=== PATIENT | male | born 1945 | race Caucasian/White ===

== ENCOUNTER 2021-10-22 02:00 | Emergency (ER) | payer MEDICARE, OTHER ==
--- NOTE | 2021-10-22 02:37 | EDM.PDOC ---
ED HPI GENERAL MEDICAL PROBLEM - General Chief Complaint: Abdominal Pain Stated Complaint: LOWER ABD PAIN Time Seen by Provider: 10/22/21 02:35 Source of Information: Reports: Patient History Limitations: Reports: No Limitations - History of Present Illness INITIAL COMMENTS - FREE TEXT/NARRATIVE: Patient is a 76-year-old male presenting to the emergency room with a complaint of lower abdominal pain. Patient reports 2 days of a bilateral lower abdominal ache which is fairly constant. Nothing seems to make symptoms better or worse. He has noticed associated symptoms that include decreased appetite and no bowel movement. Patient states he still passing flatus. Does not have a recent history of constipation. He otherwise denies fevers, chills, vomiting, dysuria, hematuria, difficulty voiding. Bilateral Lower Abdominal Pain Score (Numeric/FACES): 7 - Related Data Allergies Allergy/AdvReac Type Severity Reaction Status Date / Time No Known Allergies Allergy Verified 10/22/21 02:27 Home Meds: Home Meds Ascorbic Acid [Vitamin C] 500 mg PO DAILY 10/22/21 [History] Glimepiride 1 mg PO TID 10/22/21 [History] Multivitamin 1 tab PO DAILY 10/22/21 [History] amLODIPine Besylate [Norvasc] 2.5 mg PO DAILY 10/22/21 [History] lisinopriL [Lisinopril] 40 mg PO DAILY 10/22/21 [History] metFORMIN [Glucophage] 500 mg PO TID 10/22/21 [History] ED ROS GENERAL - Review of Systems Review Of Systems: See Below Free Text/Narrative/Comment: In addition to that documented in the HPI above, the additional ROS was obtained: Constitutional: Denies fevers or chills Eyes: Denies vision changes ENMT: Denies sore throat CV: Denies chest pain Resp: Denies SOB GI: Denies vomiting or diarrhea : Denies painful urination MSK: Denies recent trauma Skin: Denies new rashes Neuro: Denies new numbness or tingling or weakness Endocrine: Denies unexpected weight loss Heme: Denies bleeding disorders ED EXAM, GI/ABD - Physical Exam Exam: See Below Text/Narrative:: I have reviewed the triage vital signs Const: Well nourished, well developed, appears stated age Eyes: Pupils Equal and reactive to light bilaterally, no conjunctival injection HENT: No signs of trauma or swelling, Neck supple without meningismus CV: Regular Rate Rhythm, Warm, well-perfused extremities RESP: Unlabored respiratory effort GI: soft, non-tender, non-distended, no masses MSK: No gross deformities appreciated Skin: Warm, dry. No rashes Neuro: Alert, rug clipper II-XII grossly intact. Sensation and motor function of extr emities grossly intact. Psych: Appropriate mood and affect. Course - Vital Signs Last Recorded V/S: Last Vital Signs Temp 36.8 C 10/22/21 02:21 Pulse 60 10/22/21 02:21 Resp 18 10/22/21 02:21 BP 201/78 H 10/22/21 02:21 Pulse Ox 99 10/22/21 02:21 - Orders/Labs/Meds Labs: Laboratory Tests 10/22/21 10/22/21 10/22/21 Range/Units 02:45 02:45 02:45 WBC 14.82 H (4.23-9.07) K/mm3 RBC 4.35 L (4.63-6.08) M/mm3 Hgb 13.0 L (13.7-17.5) gm/dl Hct 38.7 L (40.1-51.0) % MCV 89.0 (79.0-92.2) fl MCH 29.9 (25.7-32.2) pg MCHC 33.6 (32.2-35.5) g/dl RDW Std Deviation 43.9 (35.1-43.9) fL Plt Count 269 (163-337) K/mm3 MPV 9.0 L (9.4-12.3) fl Neut % (Auto) 78.0 H (34.0-67.9) % Lymph % (Auto) 12.3 L (21.8-53.1) % [place] % (Auto) 8.2 (5.3-12.2) % Eos % (Auto) 0.9 (0.8-7.0) Baso % (Auto) 0.3 (0.1-1.2) % Neut # (Auto) 11.56 H (1.78-5.38) K/mm3 Lymph # (Auto) 1.83 (1.32-3.57) K/mm3 [place] # (Auto) 1.22 H (0.30-0.82) K/mm3 Eos # (Auto) 0.13 (0.04-0.54) K/mm3 Baso # (Auto) 0.04 (0.01-0.08) K/mm3 Sodium 140 (136-145) mEq/L Potassium 4.6 (3.5-5.1) mEq/L Chloride 106 (98-107) mEq/L Carbon Dioxide 25 (21-32) mEq/L Anion Gap 13.6 (5-15) BUN 31 H (7-18) mg/dL Creatinine 2.6 H (0.7-1.3) mg/dL Est Cr Clr Drug Dosing 22.60 mL/min Estimated GFR (MDRD) 24 (>60) mL/min BUN/Creatinine Ratio 11.9 L (14-18) Glucose 188 H (70-99) mg/dL Lactic Acid 0.9 (0.4-2.0) mmol/L Calcium 8.8 (8.5-10.1) mg/dL Total Bilirubin 0.9 (0.2-1.0) mg/dL AST 15 (15-37) U/L ALT 15 L (16-63) U/L Alkaline Phosphatase 43 L (46-116) U/L Total Protein 6.6 (6.4-8.2) g/dl Albumin 3.3 L (3.4-5.0) g/dl Globulin 3.3 gm/dL Albumin/Globulin Ratio 1.0 (1-2) Lipase 47 L (73-393) U/L Urine Color (Yellow) Urine Appearance (Clear) Urine pH (5.0-8.0) Ur Specific [place] (1.005-1.030) Urine Protein (Negative) Urine Glucose (UA) (Negative) Urine Ketones (Negative) Urine Occult Blood (Negative) Urine Nitrite (Negative) Urine Bilirubin (Negative) Urine Urobilinogen (0.2-1.0) Ur Leukocyte Esterase (Negative) Urine RBC (0-5) /hpf Urine WBC (0-5) /hpf Ur Squamous Epith Cells (0-5) /hpf Urine Bacteria (FEW) /hpf Urine Mucus (FEW) /hpf 10/22/21 Range/Units 03:10 WBC (4.23-9.07) K/mm3 RBC (4.63-6.08) M/mm3 Hgb (13.7-17.5) gm/dl Hct (40.1-51.0) % MCV (79.0-92.2) fl MCH (25.7-32.2) pg MCHC (32.2-35.5) g/dl RDW Std Deviation (35.1-43.9) fL Plt Count (163-337) K/mm3 MPV (9.4-12.3) fl Neut % (Auto) (34.0-67.9) % Lymph % (Auto) (21.8-53.1) % [place] % (Auto) (5.3-12.2) % Eos % (Auto) (0.8-7.0) Baso % (Auto) (0.1-1.2) % Neut # (Auto) (1.78-5.38) K/mm3 Lymph # (Auto) (1.32-3.57) K/mm3 [place] # (Auto) (0.30-0.82) K/mm3 Eos # (Auto) (0.04-0.54) K/mm3 Baso # (Auto) (0.01-0.08) K/mm3 Sodium (136-145) mEq/L Potassium (3.5-5.1) mEq/L Chloride (98-107) mEq/L Carbon Dioxide (21-32) mEq/L Anion Gap (5-15) BUN (7-18) mg/dL Creatinine (0.7-1.3) mg/dL Est Cr Clr Drug Dosing mL/min Estimated GFR (MDRD) (>60) mL/min BUN/Creatinine Ratio (14-18) Glucose (70-99) mg/dL Lactic Acid (0.4-2.0) mmol/L Calcium (8.5-10.1) mg/dL Total Bilirubin (0.2-1.0) mg/dL AST (15-37) U/L ALT (16-63) U/L Alkaline Phosphatase (46-116) U/L Total Protein (6.4-8.2) g/dl Albumin (3.4-5.0) g/dl Globulin gm/dL Albumin/Globulin Ratio (1-2) Lipase (73-393) U/L Urine Color Yellow (Yellow) Urine Appearance Clear (Clear) Urine pH 6.0 (5.0-8.0) Ur Specific [place] > or = 1.030 (1.005-1.030) Urine Protein 3+ H (Negative) Urine Glucose (UA) Trace H (Negative) Urine Ketones Trace H (Negative) Urine Occult Blood Trace-intact H (Negative) Urine Nitrite Negative (Negative) Urine Bilirubin Negative (Negative) Urine Urobilinogen 0.2 (0.2-1.0) Ur Leukocyte Esterase Negative (Negative) Urine RBC 0-5 (0-5) /hpf Urine WBC 0-5 (0-5) /hpf Ur Squamous Epith Cells Not seen (0-5) /hpf Urine Bacteria Rare (FEW) /hpf Urine Mucus Rare (FEW) /hpf Meds: Medications Discontinued Medications Generic Name Dose Route Start Last Admin Trade Name Freq PRN Reason Stop Dose Admin Lactated Ringer's 1,000 mls @ 1,000 mls/hr 10/22/21 03:32 10/22/21 05:33 Ringers, Lactated IV 10/22/21 04:31 1,000 mls/hr .BOLUS ONE Administration Departure - Departure Time of Disposition: 06:00 Disposition: Against Medical Advice 07 Clinical Impression: Abdominal pain - Discharge Information Referrals: Jennifer Damon NP [Primary Care Provider] - Forms: ED Department Discharge Sepsis Event Note (ED) - Evaluation Sepsis Screening Result: No Definite Risk - Focused Exam Vital Signs: Vital Signs Temp Pulse Resp BP Pulse Ox 10/22/21 02:21 36.8 C 60 18 201/78 H 99 - Assessment/Plan Assessment:: Patient is a 76-year-old male presenting with lower abdominal pain. Patient had unremarkable ER course. Differential diagnosis considered for this patient include diverticulitis, appendicitis, renal colic, urinary tract infection, urinary outlet obstruction. Patient had laboratory studies and CT scan performed. Mild leukocytosis of 14,000. Negative lactic acid. Renal function is poor. He subsequently did not want to wait for CT scan results and left AGAINST MEDICAL ADVICE. He stated he needed to get to work. I did review his CT scan after it returned after the patient had left and did not note any significant abnormality. Possibility of recently passed kidney stone. Patient was urged to either return to the emergency room or follow-up with primary care physician as soon as possible.
[2021-10-22] MEDS ORDERED: Lactated Ringers 1,000 ML IV ONE (03:32)
--- NOTE | 2021-10-22 06:13 | CT ---
CT abdomen and pelvis Technique: Multiple axial sections were obtained from above the dome of the diaphragm inferiorly through the pubic symphysis. Intravenous contrast was not utilized. Oral contrast has been given. Comparison: No prior abdominal imaging is available. Findings: Visualized lung bases show slight linear densities on the right side most likely representing scarring. Liver shows a small cyst within the inferior right lobe measuring 1.3 cm. Liver shows no additional abnormality. Gallbladder contains no calcified gallstones. Spleen size is normal. Adrenal glands show no nodule. Pancreas shows no discrete abnormality. Abdominal aorta shows atherosclerotic calcification which continues into the iliac vessels. No aneurysm is seen. No mesenteric abnormalities are appreciated. Kidneys show no abnormal calcifications. Left renal pelvis and proximal left ureter are minimally prominent. No ureteral calculi are seen. There is slight inflammatory type change being seen around the mid ureter. Difficult to exclude previous stone within the left ureter which has migrated. Other slight nonspecific inflammatory change within the fat is also a possibility. Prostate gland is slightly enlarged as expected for age. No pelvic mass or adenopathy is seen. Small fat-containing bilateral inguinal hernias are noted. Appendix is seen which is normal. Sigmoid diverticuli are seen with no findings of other inflammatory change. Bone window settings were reviewed. Slight degenerative change scattered within the spine. No acute osseous abnormality is appreciated. Impression: 1. Mild inflammatory change around the mid left ureter. Uncertain if this represents prior ureteral stone which has migrated and not visualized on current study. This could also represent other nonspecific inflammatory change within the adjacent fat. 2. Small cyst within the inferior right lobe of the liver. 3. Other findings felt to be incidental as described above. Diagnostic code #3
== END 2021-10-22 06:05 | disposition left against medical advice (07) ==
LOC: JD.ED 02:00
DX: R10.31 Right lower quadrant pain (principal); R10.32 Left lower quadrant pain; Z79.899 Other long term (current) drug therapy; Z79.84 Long term (current) use of oral hypoglycemic drugs
CPT/HCPCS: 36415; 74176; 80053; 81001; 83605; 83690; 85025; 99284; J7120

== ENCOUNTER 2021-10-27 16:27 | Emergency (ER) | payer MEDICARE, OTHER ==
[2021-10-27] MEDS ORDERED: Sodium Chloride 0.9% 10 ML Syringe FLUSH PRN (17:48)
[2021-10-27] MEDS ORDERED: Sodium Chloride 0.9% 2,000 ML IV SCH (18:00)
--- NOTE | 2021-10-27 18:28 | EDM.PDOC ---
<Moe Arana - Last Filed: 10/27/21 19:11> ED HPI GENERAL MEDICAL PROBLEM - General Chief Complaint: Genitourinary Problem Stated Complaint: KIDNEY Time Seen by Provider: 10/27/21 17:04 Source of Information: Reports: Patient History Limitations: Reports: No Limitations - History of Present Illness INITIAL COMMENTS - FREE TEXT/NARRATIVE: The patient presents with elevated creatinine. He says over a week ago he developed pain to the left lower back. He denies any injury. He has had pain like this before but then he had pain going down his left leg. He was diagnosed with sciatica. He was seen here 5 days ago and labs and a CT was done. His creatinine was elevated at that time at 2.6. His CT showed mild inflammatory change around the mid left ureter. Uncertain if this represents prior ureteral stone which has migrated and not visualized on current study. This could also represent other nonspecific inflammatory change within the adjacent fat. Small cyst within the inferior right love of the liver. Other findings felt to be incidental. He has not been wanting to eat or drink. He had diarrhea for a whole day after drinking contrast for the CT. He was not given any IV contrast. He still does not have a good appetite. He has no more diarrhea. He has no fever, chills, cough, chest pain, shortness of breath, abdominal pain, nausea or vomiting. He does have some generalized weakness. He went to see Rachelle Damon at the [facility] and she did labs. His creatinine was now up to 3.57. His K was 5.5. She called and had him come to the ER. 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 He has a baseline of 1.65 creatinine in November. Onset: Gradual Duration: Week(s): (1) Location: Reports: Back Quality: Reports: Sharp Severity: Moderate Improves with: Reports: None Worsens with: Reports: None Associated Symptoms: Reports: Loss of Appetite. Denies: Chest Pain, Cough, Fever/Chills, Nausea/Vomiting, Shortness of Breath Left Buttock Pain Score (Numeric/FACES): 8 - Related Data Allergies Allergy/AdvReac Type Severity Reaction Status Date / Time No Known Allergies Allergy Verified 10/22/21 02:27 Home Meds: Home Meds Ascorbic Acid [Vitamin C] 500 mg PO DAILY 10/22/21 [History] Glimepiride 1 mg PO TID 10/22/21 [History] Multivitamin 1 tab PO DAILY 10/22/21 [History] amLODIPine Besylate [Norvasc] 2.5 mg PO DAILY 10/22/21 [History] lisinopriL [Lisinopril] 40 mg PO DAILY 10/22/21 [History] metFORMIN [Glucophage] 500 mg PO TID 10/22/21 [History] Past Medical History Cardiovascular History: Reports: Hypertension Endocrine/Metabolic History: Reports: Diabetes, Type II - Infectious Disease History Infectious Disease History: Reports: None - Past Surgical History HEENT Surgical History: Reports: Adenoidectomy, Tonsillectomy Social & Family History - Family History Family Medical History: No Pertinent Family History - Tobacco Use Tobacco Use Status *Q: Never Tobacco User - Caffeine Use Caffeine Use: Reports: Soda Other Caffeine Use: once per month Caffeine Use Comment: occasionally - Recreational Drug Use Recreational Drug Use: No ED ROS GENERAL - Review of Systems Review Of Systems: See Below Constitutional: Reports: Weakness, Fatigue. Denies: Fever, Chills HEENT: Reports: No Symptoms Respiratory: Reports: No Symptoms Cardiovascular: Reports: No Symptoms Endocrine: Reports: No Symptoms GI/Abdominal: Reports: No Symptoms : Reports: No Symptoms Musculoskeletal: Reports: Back Pain Skin: Reports: No Symptoms Neurological: Reports: No Symptoms ED EXAM, GI/ABD - Physical Exam Exam: See Below Exam Limited By: No Limitations General Appearance: Alert, No Apparent Distress Ears: Normal External Exam Nose: Normal Inspection Head: Atraumatic, Normocephalic Neck: Normal Inspection Respiratory/Chest: No Respiratory Distress, Lungs Clear, Normal Breath Sounds Cardiovascular: Regular Rate, Rhythm, No Edema, No Murmur GI/Abdominal Exam: Soft, Non-Tender, No Organomegaly Back Exam: Other (Mild pain upon palpation to the left lower back) Course - Re-Assessments/Exams Free Text/Narrative Re-Assessment/Exam: 10/27/21 18:31 I ordered an IV NS 2L bolus, labs, and a CT of his abdomen and pelvis without c ontrast. 10/27/21 18:58 His WBC is 10.32. His Hgb is a little low at 12.4. His Na and potassium are normal now. Earlier today his K was 5.5. His anion gap is elevated at 18.9. His BUN was elevated at 49. His creatinine is elevated at 3.2. His GFR is 19. Earlier today his creatinine was 3.57 and GFR of 17. That has improved. It appears his baseline is 1.65 from prior records. He is still making urine. I have ordered a CT of his abdomen and pelvis without contrast to take a look. 10/27/21 19:11 It is change of shift. Dr Cao to take over. Departure - Departure Disposition: Home, Self-Care 01 Clinical Impression: Acute on chronic renal insufficiency - Discharge Information Referrals: Jennifer Damon NP [Primary Care Provider] - Forms: ED Department Discharge Additional Instructions: You were seen in the emergency room for worsening kidney function. Work-up in the ER included several blood tests. You were treated with 2 L of IV fluid in the ER, and your creatinine improved from 3.2 initially, to 2.9. This is still above your baseline 1.67 in November. We recommend that you discontinue your lisinopril, however, it should be done under the guidance of your PCP. Please follow-up with your PCP, Jennifer Damon NP, at the next available appointment. In the meantime, stay adequately hydrated. If any other problems, please do not hesitate to return to the ER. <Godfrey Cao - Last Filed: 10/27/21 22:30> Course - Vital Signs Last Recorded V/S: Last Vital Signs Temp 36.7 C 10/27/21 17:20 Pulse 75 10/27/21 17:20 Resp 20 10/27/21 17:20 BP 185/93 H 10/27/21 17:20 Pulse Ox 98 10/27/21 17:20 - Orders/Labs/Meds Orders: Active Orders 24 hr Category Date Time Status Cardiac Monitoring [RC] . DIRECTED Care 10/27/21 17:48 Active Peripheral IV Care [RC] . DIRECTED Care 10/27/21 17:49 Active Sodium Chloride 0.9% [Normal Saline] 2,000 ml Med 10/27/21 18:00 Active IV .BOLUS Sodium Chloride 0.9% [Saline Flush] Med 10/27/21 17:48 Active 10 ml FLUSH ASDIRECTED PRN Peripheral IV Insertion Adult [OM.PC] Stat Oth 10/27/21 17:48 Ordered Medication Orders Sodium Chloride (Normal Saline) 2,000 mls @ 1,000 mls/hr IV .BOLUS TIANA Last Admin: 10/27/21 18:19 Dose: 1,000 mls/hr Documented by: ASPEN Sodium Chloride (Sodium Chloride 0.9% 10 Ml Syringe) 10 ml FLUSH ASDIRECTED PRN PRN Reason: Keep Vein Open Last Admin: 10/27/21 18:21 Dose: 10 ml Documented by: ASPEN Labs: Laboratory Tests 10/27/21 10/27/21 10/27/21 Range/Units 17:48 18:28 18:40 WBC 10.32 H (4.23-9.07) K/mm3 RBC 4.05 L (4.63-6.08) M/mm3 Hgb 12.4 L (13.7-17.5) gm/dl Hct 36.6 L (40.1-51.0) % MCV 90.4 (79.0-92.2) fl MCH 30.6 (25.7-32.2) pg MCHC 33.9 (32.2-35.5) g/dl RDW Std Deviation 43.8 (35.1-43.9) fL Plt Count 217 (163-337) K/mm3 MPV 9.1 L (9.4-12.3) fl Neut % (Auto) 60.6 (34.0-67.9) % Lymph % (Auto) 22.0 (21.8-53.1) % [place] % (Auto) 12.2 (5.3-12.2) % Eos % (Auto) 4.4 (0.8-7.0) Baso % (Auto) 0.6 (0.1-1.2) % Neut # (Auto) 6.26 H (1.78-5.38) K/mm3 Lymph # (Auto) 2.27 (1.32-3.57) K/mm3 [place] # (Auto) 1.26 H (0.30-0.82) K/mm3 Eos # (Auto) 0.45 (0.04-0.54) K/mm3 Baso # (Auto) 0.06 (0.01-0.08) K/mm3 Sodium 139 (136-145) mEq/L Potassium 4.9 (3.5-5.1) mEq/L Chloride 103 (98-107) mEq/L Carbon Dioxide 22 (21-32) mEq/L Anion Gap 18.9 H (5-15) BUN 49 H (7-18) mg/dL Creatinine 3.2 H (0.7-1.3) mg/dL Est Cr Clr Drug Dosing 18.36 mL/min Estimated GFR (MDRD) 19 (>60) mL/min BUN/Creatinine Ratio 15.3 (14-18) Glucose 94 (70-99) mg/dL Lactic Acid 0.8 (0.4-2.0) mmol/L Calcium 8.6 (8.5-10.1) mg/dL Magnesium 2.3 (1.8-2.4) mg/dL Total Bilirubin 0.6 (0.2-1.0) mg/dL AST 29 (15-37) U/L ALT 36 (16-63) U/L Alkaline Phosphatase 80 (46-116) U/L Total Protein 6.9 (6.4-8.2) g/dl Albumin 3.2 L (3.4-5.0) g/dl Globulin 3.7 gm/dL Albumin/Globulin Ratio 0.9 L (1-2) 10/27/21 Range/Units 21:11 WBC (4.23-9.07) K/mm3 RBC (4.63-6.08) M/mm3 Hgb (13.7-17.5) gm/dl Hct (40.1-51.0) % MCV (79.0-92.2) fl MCH (25.7-32.2) pg MCHC (32.2-35.5) g/dl RDW Std Deviation (35.1-43.9) fL Plt Count (163-337) K/mm3 MPV (9.4-12.3) fl Neut % (Auto) (34.0-67.9) % Lymph % (Auto) (21.8-53.1) % [place] % (Auto) (5.3-12.2) % Eos % (Auto) (0.8-7.0) Baso % (Auto) (0.1-1.2) % Neut # (Auto) (1.78-5.38) K/mm3 Lymph # (Auto) (1.32-3.57) K/mm3 [place] # (Auto) (0.30-0.82) K/mm3 Eos # (Auto) (0.04-0.54) K/mm3 Baso # (Auto) (0.01-0.08) K/mm3 Sodium 141 (136-145) mEq/L Potassium 4.7 (3.5-5.1) mEq/L Chloride 107 (98-107) mEq/L Carbon Dioxide 22 (21-32) mEq/L Anion Gap 16.7 H (5-15) BUN 43 H (7-18) mg/dL Creatinine 2.9 H (0.7-1.3) mg/dL Est Cr Clr Drug Dosing 20.26 mL/min Estimated GFR (MDRD) 21 (>60) mL/min BUN/Creatinine Ratio 14.8 (14-18) Glucose 87 (70-99) mg/dL Lactic Acid (0.4-2.0) mmol/L Calcium 8.1 L (8.5-10.1) mg/dL Magnesium (1.8-2.4) mg/dL Total Bilirubin (0.2-1.0) mg/dL AST (15-37) U/L ALT (16-63) U/L Alkaline Phosphatase (46-116) U/L Total Protein (6.4-8.2) g/dl Albumin (3.4-5.0) g/dl Globulin gm/dL Albumin/Globulin Ratio (1-2) Meds: Medications Generic Name Dose Route Start Last Admin Trade Name Freq PRN Reason Stop Dose Admin Sodium Chloride 2,000 mls @ 1,000 mls/hr 10/27/21 18:00 10/27/21 18:19 Normal Saline IV 1,000 mls/hr .BOLUS TIANA Administration Sodium Chloride 10 ml 10/27/21 17:48 10/27/21 18:21 Sodium Chloride 0.9% 10 Ml Syringe FLUSH 10 ml ASDIRECTED PRN Administration Keep Vein Open Discontinued Medications Generic Name Dose Route Start Last Admin Trade Name Freq PRN Reason Stop Dose Admin Sodium Chloride 1,000 mls @ 999 mls/hr 10/27/21 19:47 10/27/21 19:55 Normal Saline IV 10/27/21 20:47 999 mls/hr ONETIME ONE Administration - Re-Assessments/Exams Free Text/Narrative Re-Assessment/Exam: 10/27/21 19:[address] Arana. I agree with his history and physical examination as documented. CT of the abdomen and pelvis without contrast is read by Dr. Archer as: 1. Findings as described above which are stable from prior CT study. 2. Slight increased density partially visualized within the lingula. This is likely due to atelectasis if patient has no symptoms of infection. 3. Nothing acute is otherwise seen on noncontrast CT study of the abdomen and pelvis. 10/27/21 21:07 The patient's second liter of IV fluid has finished infusing. I have ordered a BMP in order to check his renal function. 10/27/21 22:18 The patient's repeat BMP is remarkable for a BUN/Cr down to 43/2.9, with the remainder of his BMP being unremarkable. His potassium is within normal limits at 4.7. 10/27/21 22:24 Test results discussed with the patient and his . As above, his creatinine improved somewhat with IV hydration, but I explained that his kidney function is multifactorial, and not just related to hydration. I recommended that he discontinue the lisinopril, but that may cause his blood pressure to rise, therefore I would like him to do that under the guidance of his PCP, whom I would like him to follow-up with soon as possible. Departure - Departure Time of Disposition: 22:25 Condition: Good - Discharge Information *PRESCRIPTION DRUG MONITORING PROGRAM REVIEWED*: Not Applicable *COPY OF PRESCRIPTION DRUG MONITORING REPORT IN PATIENT CHLOE: Not Applicable Sepsis Event Note (ED) - Focused Exam Vital Signs: Vital Signs Temp Pulse Resp BP Pulse Ox 10/27/21 17:20 36.7 C 75 20 185/93 H 98
--- NOTE | 2021-10-27 19:29 | CT ---
CT abdomen and pelvis Technique: Multiple axial sections were obtained from above the dome of the diaphragm inferiorly through the pubic symphysis. Intravenous contrast was not utilized. There is contrast being seen within the colon. Reconstructed coronal and sagittal images were also obtained. Comparison: Prior CT study of 10/22/21. Findings: Partially visualized density is seen within the lingula. If patient has no infectious symptoms this is likely due to atelectasis. Linear scarring is seen within the right lung base. Liver shows a low density lesion within the inferior right lobe measuring about 1.3 cm. Liver is otherwise unremarkable. Spleen is within normal limits. Adrenal glands show no nodule. Pancreas is within normal limits. Gallbladder contains no calcified gallstones. Right and left kidneys show no hydronephrosis. 1.4 cm cyst is noted within the inferior right kidney. Left ureter is slightly prominent which is stable from prior study. No ureteral calculi are seen within the right or left sides. Abdominal aorta shows atherosclerotic calcification which continues into the iliac vessels. No aneurysm is seen. No retroperitoneal adenopathy or mesenteric abnormalities are seen. Fat-containing umbilical hernia is incidentally noted. Appendix appears to be partially visualized and is normal in size. Mild diverticuli are seen within the sigmoid colon. No findings of diverticulitis are seen. Prostate gland is slightly enlarged. Bilateral fat-containing inguinal hernias are noted. Bone window settings were reviewed. Scattered degenerative change is seen within the spine. No acute osseous abnormality is appreciated. Impression: 1. Findings as described above which are stable from prior CT study. 2. Slight increased density partially visualized within the lingula. This is likely due to atelectasis if patient has no symptoms of infection. 3. Nothing acute is otherwise seen on noncontrast CT study of the abdomen and pelvis. Diagnostic code #2
[2021-10-27] MEDS ORDERED: Sodium Chloride 0.9% 1,000 ML IV ONE (19:47)
== END 2021-10-27 22:30 | disposition home or self-care (01) ==
LOC: JD.ED 16:27
DX: I12.9 Hypertensive chronic kidney disease with stage 1 through stage 4 chronic kidney disease, or unspecified chronic kidney disease (principal); N18.9 Chronic kidney disease, unspecified; E11.22 Type 2 diabetes mellitus with diabetic chronic kidney disease; Z79.84 Long term (current) use of oral hypoglycemic drugs; Z79.899 Other long term (current) drug therapy
CPT/HCPCS: 36415; 74176; 80048; 80053; 83605; 83735; 85025; 99284; J7030